=== PATIENT | female | born 1980 | race African-American/Black ===

== ENCOUNTER 2019-03-20 10:30 | Emergency (ER) | payer OTHER ==
[~2019-03-20] VITALS: Ht 154.9 cm; Wt 48.5 kg
[~2019-03-20 10:30] MED LIST: AMBIEN10 MG; DEXAMETHASONE0.5 MG; GABAPENTIN100 MG; HYDROXYZINE HCL25 GM; LEVAQUIN500 MG; LYRICA50 MG; NABUMETONE750 MG; NUCYNTA50 MG; ORPHENADRINE C100 GM; RYBIX ODT50 MG; TIZANIDINE HCL4 M1; [UNRECOGNIZED DRUG - SUPPLY]
== END 2019-03-20 13:01 | disposition home or self-care (01) ==
LOC: ER 10:30
DX: S01.82XA Laceration with foreign body of other part of head, initial encounter (principal); W18.09XA Striking against other object with subsequent fall, initial encounter; Y93.89 Activity, other specified; Y92.89 Other specified places as the place of occurrence of the external cause; Y99.8 Other external cause status

== ENCOUNTER 2021-10-08 09:50 | Outpatient (CLI) | payer OTHER | END 2021-10-08 10:00 | disposition home or self-care (01) | LOC: PPH VACUNA 09:50 | PROVIDERS: ATTEND Emergency Medicine Pediatric Emergency Medicine | DX: Z23 Encounter for immunization (principal) ==